=== PATIENT | female | born 1935 | race Two or more races ===

== ENCOUNTER → 2017-09-08 | Outpatient (REF) | payer OTHER | LOC: M SFHCLERA 09:42 | DX: R39.89 Other symptoms and signs involving the genitourinary system (principal) | CPT/HCPCS: 87086 ==

== ENCOUNTER → 2017-10-17 | Outpatient (REF) | payer OTHER ==
[2017-10-17 12:28] LABS: ANION GAP 9 MEQ/L (8-16); BLOOD UREA NITROGEN 23 MG/DL (7-18); CARBON DIOXIDE LEVEL 26 MEQ/L (21-32); CHLORIDE LEVEL 108 MEQ/L (98-107); GLOMERULAR FILTRATION RATE > 60.0 (>32); GLUCOSE, FASTING 94 MG/DL (70-100); POTASSIUM SERUM 4.4 MEQ/L (3.5-5.1); SODIUM LEVEL 143 MEQ/L (136-145); THYROID STIMULATING HORMONE 0.638 uIU/ML (0.358-3.740)
== END ==
LOC: M SFHCLERA 08:39
DX: E03.9 Hypothyroidism, unspecified (principal); I10 Essential (primary) hypertension
CPT/HCPCS: 84443

== ENCOUNTER → 2018-04-07 | Outpatient (REF) | payer OTHER ==
[2018-04-07 17:35] LABS: CHOLESTEROL RISK RATIO 2.867 (<5)
== END ==
LOC: M SFHCLERA 12:15
PROVIDERS: ATTEND Family Medicine
DX: E78.2 Mixed hyperlipidemia (principal)
CPT/HCPCS: 80061; G0463

== ENCOUNTER → 2018-08-29 | Outpatient (CLI) | payer MEDICARE ==
--- NOTE | 2018-08-29 18:53 | REP ---
CAROTID ULTRASOUND: Real-time ultrasound evaluation and duplex Doppler interrogation of the extracranial carotid vasculature is performed. There is mild plaquing and narrowing in both carotid bulbs extending into the internal and external carotid arteries. Luminal narrowing is less than 50%. There is no evidence of hemodynamically significant stenosis of either internal carotid artery. Normal flow velocities are seen. The vertebral arteries demonstrate normal direction of flow, but there is partial reversal of flow in the left vertebral artery, compatible with partial subclavian steal syndrome. RIGHT LEFT Peak systolic velocity ICA 71.8 cm/s 87.7 cm/s End diastolic velocity ICA 18.5 cm/s 12.6 cm/s Peak systolic velocity CCA 92 cm/s 84.9 cm/s Peak systolic velocity ECA 82.9 cm/s 62.8 cm/s ICA/CCA ratio 0.70 0.97 IMPRESSION: Bilateral luminal narrowing of the internal carotid arteries less than 50%. No evidence of hemodynamically significant stenosis. Partial reversal of flow in the left vertebral artery, compatible with partial subclavian steal syndrome. Electronically Signed by Toni Blanco MD 08/29/2018 06:44 P
== END ==
LOC: M RAD 10:01
PROVIDERS: ATTEND Family Medicine
DX: E78.2 Mixed hyperlipidemia (principal); G45.8 Other transient cerebral ischemic attacks and related syndromes

== ENCOUNTER → 2018-10-22 | Outpatient (REF) | payer MEDICARE ==
[2018-10-22 17:03] LABS: BLOOD UREA NITROGEN 22 MG/DL (7-18); CALCIUM LEVEL 9.4 MG/DL (8.8-10.2); CARBON DIOXIDE LEVEL 28 MEQ/L (21-32); CHLORIDE LEVEL 107 MEQ/L (98-107); CREATININE FOR GFR 0.82 MG/DL (0.55-1.30); GLOMERULAR FILTRATION RATE > 60.0 (>32); GLUCOSE, FASTING 93 MG/DL (70-100); POTASSIUM SERUM 4.8 MEQ/L (3.5-5.1); SODIUM LEVEL 140 MEQ/L (136-145); THYROID STIMULATING HORMONE 0.119 uIU/ML (0.358-3.740)
== END ==
LOC: M SFHCLERA 12:29
PROVIDERS: ATTEND Family Medicine
DX: E78.2 Mixed hyperlipidemia (principal)
CPT/HCPCS: 80048; 84443; G0463

== ENCOUNTER → 2019-01-28 | Outpatient (REF) | payer MEDICARE | LOC: M SFHCLERA 10:56 | PROVIDERS: ATTEND Family Medicine | DX: E03.9 Hypothyroidism, unspecified (principal) ==

== ENCOUNTER → 2019-03-17 | Outpatient (CLI) | payer MEDICARE ==
--- NOTE | 2019-03-17 11:44 | REP ---
Left knee series: Five views. History: Acute pain in the left knee. Findings: Five views of the left knee demonstrate diffuse osteopenia. There is fullness in the suprapatellar bursa indicative of a joint effusion. Vascular calcifications noted. Mild patellar spurring is seen. Impression: Findings consistent with large joint effusion. Patellar spurring. No acute bony abnormality. Electronically Signed by Ming Guerrero MD 03/17/2019 03:34 P
== END ==
LOC: M LRY 11:06
PROVIDERS: ATTEND Family Medicine
DX: M25.762 Osteophyte, left knee (principal); M25.562 Pain in left knee
CPT/HCPCS: 73564; G0463

== ENCOUNTER → 2019-06-02 | Outpatient (CLI) | payer MEDICARE ==
--- NOTE | 2019-06-02 14:15 | REP ---
Bilateral carotid artery duplex ultrasound: Peak flow velocity analysis: RIGHT LEFT ICA Peak flow velocity cm/sec 85.3 cm/sec 104 cm/sec ICA Diastolic flow velocity cm/sec 24.7 cm/sec 24.2 cm/sec ICA/CCA Ratio 0.96 cm/sec 1.25 cm/sec ECA Peak flow velocity cm/sec 62.2 cm/sec 83.1 cm/sec CCA Peak flow velocity cm/sec 89.5 cm/sec 83.4 cm/sec The there is shallow atheromatous plaque bilaterally in the common carotid arteries extending into the bulbs and proximal internal carotid arteries and external carotid arteries bilaterally. Peak flow velocities are normal bilaterally. There is no stenosis on the right on the left. There is antegrade flow in the right vertebral artery. There is antegrade flow in the left vertebral artery, however, there is notching of the left vertebral waveform. This may indicate a pre- subclavian steal wave form. CTA or MRA of the aortic arch and brachiocephalic vessels might be considered. Electronically Signed by Toni Gracia MD 06/02/2019 02:07 P
== END ==
LOC: M RAD 09:37
PROVIDERS: ATTEND Physician Assistant
DX: I65.23 Occlusion and stenosis of bilateral carotid arteries (principal)

== ENCOUNTER → 2019-11-06 | Outpatient (REF) | payer MEDICARE | LOC: M SFHCWAGY 17:17 | PROVIDERS: ATTEND Nurse Practitioner Family | DX: R39.198 Other difficulties with micturition (principal) ==

== ENCOUNTER → 2020-06-24 | Outpatient (CLI) | payer MEDICARE ==
--- NOTE | 2020-06-24 16:47 | REP ---
INDICATION: OCCLUSION AND STENOSIS OF BILATERAL CAROTID ARTERIES COMPARISON: 06/02/2019. TECHNIQUE: Real-time ultrasound evaluation and duplex Doppler interrogation of the extracranial carotid vasculature is performed. FINDINGS: There is mild plaquing and narrowing in both carotid bulbs extending into the internal and external carotid arteries. Luminal narrowing is less than 50%. There is no evidence of hemodynamically significant stenosis of either internal carotid artery. Normal flow velocities are seen. The right vertebral artery demonstrates normal direction of flow. The left vertebral artery demonstrates bidirectional flow suggesting partial subclavian steal, increased since prior study. RIGHT LEFT Peak systolic velocity ICA 76.2 cm/s 69.5 cm/s End diastolic velocity ICA 15.0 cm/s 11.9 cm/s Peak systolic velocity CCA 93.2 cm/s 79.0cm/s Peak systolic velocity ECA 55.1 cm/s 70.0 cm/s ICA/CCA ratio 0.82 0.88 IMPRESSION: Bilateral luminal narrowing of the internal carotid arteries less than 50%. No evidence of hemodynamically significant stenosis. The left vertebral artery demonstrates bidirectional flow suggesting partial subclavian steal, increased since prior study. <Electronically signed by Toni Blanco > 06/24/20 [id number]
== END ==
LOC: M RAD 12:51
PROVIDERS: ATTEND Physician Assistant
DX: I65.23 Occlusion and stenosis of bilateral carotid arteries (principal)

== ENCOUNTER → 2021-02-06 | Outpatient (CLI) | payer MEDICARE ==
--- NOTE | 2021-02-06 13:43 | REP ---
INDICATION: LEG SWELLING COMPARISON: None. TECHNIQUE: Blanco scale and color Doppler evaluation using linear high frequency transducer. FINDINGS: Ultrasound examination of the right lower extremity deep venous structures from the common femoral vein through the popliteal vein demonstrates normal compressibility flow and wave patterns in response to respiration and augmentation. There is no evidence for deep venous thrombosis. Evaluation of the calf veins is incomplete due to edema and technical factors. Contralateral CFV is patent and normal. IMPRESSION: No evidence for deep venous thrombosis. <Electronically signed by Alejo Alejo > 02/06/21 [id number]
== END ==
LOC: M RAD 13:07
PROVIDERS: ATTEND Family Medicine
DX: M79.89 Other specified soft tissue disorders (principal)
CPT/HCPCS: 93971; G0463

== ENCOUNTER → 2021-02-13 | Outpatient (CLI) | payer MEDICARE ==
--- NOTE | 2021-02-13 13:16 | REP ---
INDICATION: SWELLING, PAIN RT LEG. COMPARISON: None. TECHNIQUE: Multiple ultrasonographic images of the deep venous structures of the right lower extremity were obtained from the inguinal ligament to the ankle. Venous compression techniques, color doppler imaging, and augmentation techniques were also obtained where appropriate. As per the ACR guidelines the anterior tibial vein can not be effectively evaluated. Only compression techniques in the calf on the peroneal and posterior tibial veins was attempted/performed. FINDINGS: There is no abnormal echogenic material seen within any of the visualized deep venous structures that would suggest acute thrombosis. Coaptation is unremarkable throughout. Doppler interrogation shows an expected response to respiratory variability and augmentation in the thigh. Compression techniques in the calf were unobtainable. The color flow images show what appears to be a normal vascular pattern throughout the thigh. In the medial soft tissues of the calf region there is an 8.7 x 4.6 x 2.3 cm sized complex fluid collection. IMPRESSION: There is no ultrasonographic evidence of deep venous thrombosis involving any of the visualized deep venous structures of the right lower extremity as described above. Due to technical parameters calf vein DVT can not be ruled out. Complex fluid collection as described above possibly representing a hematoma. Clinical evaluation is recommended and if necessary obtain an MRI. <Electronically signed by Helio Sevilla > 02/13/21 [id number]
[2021-02-13 13:58] LABS: BLOOD UREA NITROGEN 18 MG/DL (7-18); CALCIUM LEVEL 9.7 MG/DL (8.8-10.2); CARBON DIOXIDE LEVEL 30 MEQ/L (21-32); CHLORIDE LEVEL 106 MEQ/L (98-107); CREATININE FOR GFR 0.82 MG/DL (0.55-1.30); GLOMERULAR FILTRATION RATE > 60.0 (>32); GLUCOSE, FASTING 100 MG/DL (70-100); POTASSIUM SERUM 4.4 MEQ/L (3.5-5.1); SODIUM LEVEL 141 MEQ/L (136-145)
== END ==
LOC: M RAD 11:39
PROVIDERS: ATTEND Family Medicine
DX: M79.89 Other specified soft tissue disorders (principal)
CPT/HCPCS: 36415; 80048; 85379; 93971; G0463

== ENCOUNTER → 2021-03-15 | Outpatient (CLI) | payer MEDICARE ==
[~2021-03-15] MED LIST: PROHANCE 279.3MG/ML 15ML VIAL ONE
--- NOTE | 2021-03-15 10:32 | REP ---
INDICATION: RT LEG SWELLING. COMPARISON: None. TECHNIQUE: Pre and post contrast 3T MRI of the right lower extremity was performed utilizing various sequences. Gadolinium utilized: 14 cc ProHance FINDINGS: In the proximal median calf abutting the medial head of the gastrocnemius muscle there is a 7.8 x 3 x 2.1 cm sized mixed signal structure. This is either external to the superficial part of the posterior compartment or it is within the posterior compartment but external to the gastrocnemius muscular fascial plane. This is surrounded by signal void on all sequences, is of peripheral T1 shortening and T2 prolongation, enhances peripherally deep to the circumferential signal void, and is of central low intermediate signal on all sequences without enhancement. The cortical marrow signal seen throughout the imaged tibia and fibula is within normal limits. There is no abnormal periosteal thickening, signal, or enhancement. There is no evidence of a knee joint or ankle joint effusion. IMPRESSION: There is a mass/masslike fluid collection in the proximal posterior calf as described above. It appears chronic, however, acute change upon chronic etiology cannot be ruled out. The exact etiology of this is uncertain. <Electronically signed by Helio Sevilla > 03/15/21 [id number]
== END ==
LOC: M PLAIMG 08:08
PROVIDERS: ATTEND Family Medicine
DX: S80.11XA Contusion of right lower leg, initial encounter (principal); R60.0 Localized edema; W18.30XA Fall on same level, unspecified, initial encounter; Y92.009 Unspecified place in unspecified non-institutional (private) residence as the place of occurrence of the external cause
CPT/HCPCS: 73720; A9576

== ENCOUNTER → 2021-04-17 | Outpatient (CLI) | payer MEDICARE | LOC: M SOG 13:26 | PROVIDERS: ATTEND Orthopaedic Surgery Adult Reconstructive Orthopaedic Surgery | DX: M25.561 Pain in right knee (principal) ==

== ENCOUNTER → 2022-07-12 | Outpatient (CLI) | payer MEDICARE | LOC: M SOG 09:25 | PROVIDERS: ATTEND Orthopaedic Surgery Adult Reconstructive Orthopaedic Surgery | DX: M17.11 Unilateral primary osteoarthritis, right knee (principal) ==

== ENCOUNTER → 2023-03-18 | Outpatient (CLI) | payer MEDICARE | LOC: M SOG 08:04 | PROVIDERS: ATTEND Orthopaedic Surgery | DX: M25.561 Pain in right knee (principal) ==

== ENCOUNTER → 2023-03-19 | Outpatient (CLI) | payer MEDICARE | LOC: M SOG 10:04 | PROVIDERS: ATTEND Orthopaedic Surgery | DX: M25.561 Pain in right knee (principal) ==

== ENCOUNTER → 2023-11-19 | Outpatient (CLI) | payer MEDICARE ==
[~2023-11-19] MED LIST changes: +ISOVUE-370 76% 100ML VIAL As Ordered ONE; -PROHANCE 279.3MG/ML 15ML VIAL ONE
== END ==
LOC: M RAD 10:23
PROVIDERS: ATTEND Surgery Vascular Surgery
DX: I65.29 Occlusion and stenosis of unspecified carotid artery (principal)
CPT/HCPCS: 70496; 70498; Q9967